=== PATIENT | male | born 1970 | race Hispanic/Latino ===

== ENCOUNTER → 2017-05-24 | Outpatient (REF) ==
--- NOTE | 2017-05-25 01:40 | REP ---
Clinical: Pain. Technique: AP, lateral, bilateral oblique and sunrise views right knee . Findings: The osseous structures and joint spaces are intact and normal for age. Very minimal medial and patellofemoral joint space narrowing cannot be excluded. There is no evidence for acute fracture or dislocation. No joint effusion is appreciated. Surrounding soft tissues are unremarkable. No subcutaneous emphysema or radiodense foreign body. Impression: Relatively normal, age-appropriate examination. Minimal joint space narrowing cannot be excluded. No acute fracture or dislocation. Signed by Ravinder Bhakta MD 05/25/2017 01:31 A
== END ==
LOC: M RAD 15:11
PROVIDERS: ATTEND Internal Medicine
DX: M25.561 Pain in right knee (principal); M17.11 Unilateral primary osteoarthritis, right knee

== ENCOUNTER 2022-05-10 09:59 | Emergency (ER) | payer OTHER ==
[~2022-05-10] VITALS: Ht 175.3 cm; Wt 100.0 kg
[2022-05-10 12:28] LABS: BASO % 0.2 % (0.0-1.0); HEMATOCRIT 47.3 % (42.0-52.0); HEMOGLOBIN 16.2 g/dl (13.5-17.5); LYMPH # 0.8 10^3/uL (1.5-5.0); LYMPH % 6.2 % (24.0-44.0); MEAN CORPUSCULAR HEMOGLOBIN 30.5 pg (27.0-33.0); MEAN CORPUSCULAR HGB CONC 34.2 g/dl (32.0-36.5); MEAN CORPUSCULAR VOLUME 88.9 fl (80.0-96.0); MONO # 0.4 10^3/uL (0.0-0.8); MONO % 3.2 % (2.0-8.0); NEUTROPHILS # 11.7 10^3/uL (1.5-8.5); NEUTROPHILS % 89.6 % (36.0-66.0); PLATELET COUNT, AUTOMATED 211 10^3/uL (150-450); RED BLOOD COUNT 5.32 10^6/uL (4.30-6.10)
[2022-05-10 12:41] LABS: INR 1.02; PROTHROMBIN TIME 13.8 SECONDS (12.7-14.5)
[2022-05-10 12:42] LABS: PARTIAL THROMBOPLASTIN TIME 29.6 SECONDS (25.9-37.0)
[2022-05-10 12:57] LABS: BLOOD UREA NITROGEN 15 MG/DL (7-18); CALCIUM LEVEL 9.3 MG/DL (8.5-10.1); CARBON DIOXIDE LEVEL 27 MEQ/L (21-32); CHLORIDE LEVEL 103 MEQ/L (98-107); CREATININE FOR GFR 0.86 MG/DL (0.70-1.30); GLOMERULAR FILTRATION RATE > 60.0 (>56); GLUCOSE, FASTING 126 MG/DL (70-100); POTASSIUM SERUM 3.9 MEQ/L (3.5-5.1); SODIUM LEVEL 137 MEQ/L (136-145)
[2022-05-10 13:05] LABS: MB/CK RELATIVE INDEX 1.71 (< OR =4)
[2022-05-10] MEDS ORDERED: ONDANSETRON 4MG ORAL DISINTEGRATING TAB PO ONE (16:45)
[2022-05-10] MEDS ORDERED: MECLIZINE 25 MG TABLET PO ONE (16:45)
[2022-05-10] MEDS ORDERED: ONDA4TAB6 PO (18:46)
[2022-05-10] MEDS ORDERED: MECL1TAB31 PO (18:46)
[2022-05-10] MEDS ORDERED: physical therapy ×2 (18:48→18:55)
[2022-05-10 18:55] VITALS: BP 150/89
== END 2022-05-10 19:05 | disposition home or self-care (01) ==
LOC: M ED 09:59
DX: H81.10 Benign paroxysmal vertigo, unspecified ear (principal); R00.1 Bradycardia, unspecified; I10 Essential (primary) hypertension; K21.9 Gastro-esophageal reflux disease without esophagitis; G47.33 Obstructive sleep apnea (adult) (pediatric); M50.20 Other cervical disc displacement, unspecified cervical region